=== PATIENT | male | born 1970 | race Caucasian/White ===

== ENCOUNTER 2020-07-01 21:31 | Emergency (ER) | payer OTHER ==
[2020-07-01] MEDS ORDERED: BACITRACIN15 GM TOP ×2 (22:09→22:23)
[2020-07-01] MEDS ORDERED: NORCO 5-325 TA1 EACH PO ×2 (22:09→22:23)
== END 2020-07-01 22:50 | disposition home or self-care (01) ==
LOC: FER 21:31
DX: T65.91XA Toxic effect of unspecified substance, accidental (unintentional), initial encounter (principal); T22.612A Corrosion of second degree of left forearm, initial encounter; T20.47XA Corrosion of unspecified degree of neck, initial encounter; T32.0 Corrosions involving less than 10% of body surface; E03.9 Hypothyroidism, unspecified; Z79.899 Other long term (current) drug therapy; Y92.410 Unspecified street and highway as the place of occurrence of the external cause
CPT/HCPCS: 99283